=== PATIENT | male | born 1990 | race Two or more races ===

== ENCOUNTER 2017-02-20 00:05 | Emergency (ER) | payer SELFPAY ==
--- NOTE | ~2017-02-20 | ER ---
PATIENT'S NAME: [facility] AGE: 26 Y [address] ROOM: [place] [address] LOCATION: ED ADMIT DATE: 02/20/2017 ER/Outpatient Report DISCHARGE DATE: 02/20/2017 FAMILY PHYSICIAN: , Unknown ATTENDING PHYSICIAN: Henrik Fitzgerald TIME OF ARRIVAL: 0005 hours. TIME OF EVALUATION: 0007 hours. CHIEF COMPLAINT: Nonverbal. HISTORY OF PRESENT ILLNESS: This patient is a 26-year-old male who presents to the emergency department today with a chief complaint of being nonverbal. The patient does have a history of similar episodes in the past apparently 3-4 times. Last time was approximately 2014. He was actually seen and evaluated by myself at that time. The patient is accompanied by his mom and sister. They report that he is alert, he is just not acting normal, he is not answering questions and just kind of staring off into space. Last time when this happened, he passed out. He does eventually regain normal mental status and reports he just felt like he was in a tunnel. He denies any chest pain. No shortness of breath. No fevers or chills. No nausea or vomiting. No diarrhea or constipation. He does have mild headache. PAST MEDICAL HISTORY: Hypothyroid, schizophrenia. PAST SURGICAL HISTORY: Appendectomy. SOCIAL HISTORY: The patient denies any alcohol use. Does smoke marijuana. ALLERGIES: NO KNOWN DRUG ALLERGIES. MEDICATIONS: Please see list. PRIMARY CARE DOCTOR: Brigitte Solis. PATIENT'S NAME: [facility] AGE: 26 Y [address] ROOM: [place] [address] LOCATION: ED ADMIT DATE: 02/20/2017 ER/Outpatient Report DISCHARGE DATE: 02/20/2017 FAMILY PHYSICIAN: , Unknown ATTENDING PHYSICIAN: Henrik Fitzgerald REVIEW OF SYSTEMS: All systems are reviewed by myself and negative with the exception of those discussed in HPI and past medical history. PHYSICAL EXAMINATION: VITAL SIGNS: Weight 58.4 kg. Blood pressure 134/78, pulse 79, respiratory rate 18, temperature 98.2, oxygen saturation 94% on room air. GENERAL: The patient is a 26-year-old male, appears stated age, in no acute distress. He is alert. He does answer questions with the head nod. HEENT: Pupils are equal, round, and reactive to light. Extraocular motions are intact. Nares are patent bilaterally. TMs are clear. Oropharynx is clear. NECK: Supple. There is no nuchal rigidity. CARDIOVASCULAR: Regular rate and rhythm. No murmurs, rubs, or gallops. LUNGS: Clear to auscultation bilaterally. No wheezes, rales, or rhonchi. ABDOMEN: Soft, nontender, and nondistended. No rebound, rigidity, or guarding. MUSCULOSKELETAL: The patient moves all 4 extremities. SKIN: Warm and dry. There are no rashes or lesions noted. NEUROLOGICAL: GCS 15. He becomes alert and oriented. LABORATORY DATA AND X-RAYS: Venous blood gas 7.39/41/39/25/-0.2. EKG shows arrhythmia, rate of 80, normal axis, normal interval. No ST elevation, ST depression or T-wave inversions. Lactate is normal. CBC is normal. Procalcitonin 0.06. CMP unremarkable except for potassium 3.5. LFTs are normal. CT scan of the brain is obtained shows moderate sinusitis with chronic changes in the mastoid, no acute process. Urinalysis is negative. Alcohol is less than 0.01. Acetaminophen is less than 2. Salicylate less than 2.8. Free T4 is normal. TSH is normal. Urine drug screen is negative. IMPRESSION: 1. Catatonic state, resolved. 2. Initial visit. EMERGENCY DEPARTMENT COURSE: The patient was brought back to the examination room. Seen and evaluated by myself. Laboratory analysis and imaging are obtained as described above. The patient now spontaneously resolved his symptoms. His workup is unremarkable. Unclear of exact etiology of his symptomatology, certainly may be psychiatric and maybe some sort of seizure-type disorder. I have discussed this with the patient. His questions are answered. I have asked he follow up with his primary care doctor in 2-3 days for re-evaluation. I have discussed return to PATIENT'S NAME: JEAN CLAUDE GUTIERREZ [facility] AGE: 26 Y [address] ROOM: [place], [place] [address] LOCATION: ED ADMIT DATE: 02/20/2017 ER/Outpatient Report DISCHARGE DATE: 02/20/2017 FAMILY PHYSICIAN: Physician, Unknown ATTENDING PHYSICIAN: Henrik Fitzgerald care instructions including worsening symptoms or any other concerns to return to the emergency department as soon as possible. DISPOSITION: The patient discharged home in good condition. DO ODILON VOGEL/volodymyr /[id number] d: 02/20/17841 t: 02/20/17 1933, OUTPATIENT REPORT
[~2017-02-20 00:05] MED LIST: ATIVAN1 MG PO; INVEGA1.5 MG SUB-Q; LEVOTHROID (SY25 MCG PO
[2017-02-20 00:54] LABS: BICARBONATE 24.8 mmol/L (18.0-23.0); LACTATE 1.1 mEq/L (0.50-1.60); PCO2 41 mmHg (35-45); PO2 59 mmHg (80-90)
[2017-02-20 00:55] LABS: BASOPHIL % 0.4 %; EOSINOPHIL % 0.1 %; IMMATURE GRANULOCYTE % 0.3 %; LYMPHOCYTE # 1.4 K/uL (0.8-4.0); LYMPHOCYTE % 14.8 %; MCH 31.4 pg (27.0-34.0); MCHC 36.6 gm/dL (32.0-36.5); MCV 85.8 fl (83.0-98.0); MONOCYTE # 0.4 K/uL (0.0-1.0); MONOCYTE % 3.9 %; MPV 10.1 fl (9.4-12.4); NEUTROPHIL # (ANC) 7.4 K/uL (1.4-9.0); NEUTROPHIL % 80.5 %; NRBC % 0 /100WBC (0-0.00); PLATELET COUNT 252 K/uL (150-450); RBC 4.78 M/uL (4.00-6.00); RDW-CV 11.9 % (11.9-14.6); WBC 9.2 K/uL (4.0-11.0)
[2017-02-20 01:20] LABS: ALBUMIN 4.4 gm/dL (3.5-5.0); ALK PHOS 66 IU/L (33-138); ALT 16 IU/L (12-78); ANION GAP 12.5 (10.0-19.0); AST 12 IU/L (10-40); BLOOD UREA NITROGEN 11 mg/dL (6-24); CHLORIDE 110 mMol/L (96-110); CO2 23 mMol/L (22-32); CREATININE 0.9 mg/dL (0.6-1.3); POTASSIUM 3.5 mMol/L (3.7-5.1); SODIUM 142 mMol/L (135-145); TOTAL BILIRUBIN 0.8 mg/dL (0.0-1.5)
[2017-02-20 01:26] LABS: BILIRUBIN URINE NEGATIVE (NEGATIVE); BLOOD URINE NEGATIVE /UL (NEGATIVE); COLOR URINE YELLOW (YELLOW); GLUCOSE URINE NEGATIVE (NEGATIVE); KETONE URINE 5 mg/dL (NEGATIVE); LEUKOCYTES URINE NEGATIVE /UL (NEGATIVE); NITRITE URINE NEGATIVE (NEGATIVE); PROTEIN URINE NEGATIVE (NEGATIVE); SPEC GRAVITY URINE 1.015 (1.003-1.035); TURBIDITY URINE CLEAR (CLEAR); UROBILINOGEN URINE NORMAL (NORMAL)
[2017-02-20 01:59] LABS: AMPHETAMINE NEGATIVE (NEGATIVE); BARBITURATE NEGATIVE (NEGATIVE); COCAINE NEGATIVE (NEGATIVE); OPIATES NEGATIVE (NEGATIVE)
[2017-02-20] MEDS ORDERED: LEVOTHROID (SY50 MCG PO (17:25)
== END 2017-02-20 02:00 | disposition disaster alternative care site (69) ==
LOC: GMED 00:05
PROVIDERS: Emergency Medicine
DX: F20.2 Catatonic schizophrenia (principal); E03.9 Hypothyroidism, unspecified; Z90.49 Acquired absence of other specified parts of digestive tract; Z79.899 Other long term (current) drug therapy
CPT/HCPCS: G0480